=== PATIENT | male | born 1950 | race Caucasian/White ===

== ENCOUNTER 2016-11-30 09:42 | Outpatient (CLI) | payer MEDICARE, OTHER ==
[~2016-11-30] VITALS: Ht 182.9 cm; Wt 106.6 kg
[~2016-11-30 09:42] MED LIST: ALEVE 220MG220 MG PO; AMBIEN 10MG10 MG PO; AMBIEN10 MG PO; AMPICILLIN500 MG PO; ASPIRIN 81M81 MG/TA2 PO; AZASAN50 MG PO; AZATHIOPRINE50 MG PO; BLOOD PRESSURE PO; CHOLESTEROL MED PO; CIPRO 500MG TA500 MG PO; CYANOCOBAL1000 MCG/1 IM; DILAUDID 2MG TAB2 MG PO; DRISDOL50000 IU PO; FLAGYL500 MG PO; FOLIC ACID1 MG PO; HCTZ 25MG TAB25 MG PO; IMURAN 50MG TAB50 MG PO; KLOR-CON20 MEQ PO; LEVAQUIN 250MG250 MG PO; LEVAQUIN 5500 MG/TA1 PO; LIPITOR 40MG TA40 MG PO; LORTAB 5/500 501 TAB PO; METOPROLOL50 MG PO; METRONIDAZOLE500 MG PO; MICROZIDE12.5 MG PO; PENTASA500 MG PO; PERCOCET 325 MG1 TA2 PO; PREDNISONE 5MG5 MG PO; PREDNISONE10 MG PO; PREDNISONE20 MG PO; PRINIVIL20 MG PO; REMICADE; TOPROL XL 25MG25 MG PO; ULTRAM 50MG TAB50 MG; ULTRAM 50MG TAB50 MG PO; VIT B; VITAMIN D1000 IU PO; ZOFRAN ODT4 MG PO; ZOFRAN4 M1 PO; ZOLPIDEM10 MG PO; ZYVOX600 MG PO; [UNRECOGNIZED DRUG - OTHER]; hydrocodone; vit D
[2016-11-30 10:08] LABS: BASO # 0.1 (0.0-0.2); BASO % 0.6 % (0.0-2.0); EOS # 0.3 (0.0-0.7); EOS % 2.7 % (0-4.0); GRAN # 6.6 (1.4-6.5); GRAN % 68.5 % (42.2-75.2); HEMATOCRIT 45.9 % (42.0-52.0); HEMOGLOBIN 15.8 g/dl (13.5-18.0); LYMPH % 20.3 % (20.0-51.0); MEAN CELL VOLUME 92 fl (80.0-100.0); MEAN CORPUSCULAR HEMOGLOBIN 32 pg (27.0-31.0); MEAN CORPUSCULAR HGB CONC 34 g/dl (33.0-37.0); MEAN PLATELET VOLUME 9.3 fl (7.4-10.4); MONO # 0.8 (0.1-0.6); MONO % 7.7 % (1.7-9.3); PLATELET COUNT 301 K/mm3 (130-400); REDCELL DISTRIBUTION WIDTH-CV 14.8 % (11.5-14.5); WHITE BLOOD COUNT 9.7 K/mm3 (4.8-10.8)
[2016-11-30] MEDS ORDERED: REMICADE V100 MG/VIA IV (10:46)
[2016-11-30 11:30] VITALS: BP 119/55; PULSE 70; TEMP 98.5
[2016-11-30 12:00] VITALS: BP 104/44; PULSE 71; TEMP 98
[2016-11-30 12:30] VITALS: BP 105/46; PULSE 72; TEMP 98
[2016-11-30 13:00] VITALS: BP 102/44; PULSE 66; TEMP 97.9
[2016-11-30] MEDS ORDERED: SONATA 10MG10 MG PO (13:18)
[2016-11-30 13:30] VITALS: BP 105/45; PULSE 66; TEMP 98
== END 2016-11-30 13:49 | disposition home or self-care (01) ==
LOC: EUO 09:42
PROVIDERS: Internal Medicine Gastroenterology
DX: K50.818 Crohn's disease of both small and large intestine with other complication (principal)
CPT/HCPCS: J1200; J1745; J7050

== ENCOUNTER 2017-01-25 10:02 | Outpatient (CLI) | payer MEDICARE, OTHER ==
[2017-01-25] VITALS (7 sets, daily range): BP systolic 101–133; BP diastolic 53–66; PULSE 56–77; TEMP 97.6–98
[~2017-01-25] VITALS: Ht 182.9 cm; Wt 106.0 kg
[~2017-01-25 10:02] MED LIST changes: +REMICADE V100 MG/VIA IV; +SONATA 10MG10 MG PO
[2017-01-25 10:23] LABS: HEMATOCRIT 45.2 % (42.0-52.0); HEMOGLOBIN 15.6 g/dl (13.5-18.0); MEAN CELL VOLUME 91 fl (80.0-100.0); MEAN CORPUSCULAR HEMOGLOBIN 31 pg (27.0-31.0); MEAN CORPUSCULAR HGB CONC 35 g/dl (33.0-37.0); MEAN PLATELET VOLUME 9.4 fl (7.4-10.4); PLATELET COUNT 312 K/mm3 (130-400); RED BLOOD COUNT 4.97 M/mm3 (4.20-5.60); REDCELL DISTRIBUTION WIDTH-CV 14.6 % (11.5-14.5); WHITE BLOOD COUNT 9.4 K/mm3 (4.8-10.8)
== END 2017-01-25 15:07 | disposition home or self-care (01) ==
LOC: EUO 10:02
PROVIDERS: Internal Medicine Gastroenterology
DX: K50.818 Crohn's disease of both small and large intestine with other complication (principal)
CPT/HCPCS: J1200; J1745; J7050

== ENCOUNTER 2017-03-22 09:55 | Outpatient (CLI) | payer MEDICARE, OTHER ==
[~2017-03-22] VITALS: Ht 182.9 cm; Wt 108.1 kg
[2017-03-22 10:15] VITALS: BP 127/61; PULSE 71; TEMP 97.8
[2017-03-22 11:26] LABS: HEMATOCRIT 44.7 % (42.0-52.0); HEMOGLOBIN 15.6 g/dl (13.5-18.0); MEAN CELL VOLUME 90 fl (80.0-100.0); MEAN CORPUSCULAR HEMOGLOBIN 31 pg (27.0-31.0); MEAN CORPUSCULAR HGB CONC 35 g/dl (33.0-37.0); MEAN PLATELET VOLUME 9.8 fl (7.4-10.4); PLATELET COUNT 294 K/mm3 (130-400); RED BLOOD COUNT 4.97 M/mm3 (4.20-5.60); REDCELL DISTRIBUTION WIDTH-CV 14.6 % (11.5-14.5); WHITE BLOOD COUNT 9.7 K/mm3 (4.8-10.8)
[2017-03-22 12:55] VITALS: BP 137/70; PULSE 58; TEMP 97.1
[2017-03-22 13:00] VITALS: BP 123/68; PULSE 57
[2017-03-22 13:30] VITALS: BP 137/70; PULSE 62
[2017-03-22 14:00] VITALS: BP 116/70; PULSE 60
== END 2017-03-22 15:08 | disposition home or self-care (01) ==
LOC: EUO 09:55
PROVIDERS: Internal Medicine Gastroenterology
DX: K50.818 Crohn's disease of both small and large intestine with other complication (principal)
CPT/HCPCS: J1200; J1745; J7050

== ENCOUNTER 2017-05-18 08:45 | Outpatient (CLI) | payer MEDICARE, OTHER ==
[~2017-05-18] VITALS: Ht 182.9 cm; Wt 106.6 kg
[2017-05-18] MEDS ORDERED: INFLECTRA100 MG IV (09:32)
[2017-05-18 09:35] LABS: HEMATOCRIT 45.9 % (42.0-52.0); HEMOGLOBIN 15.9 g/dl (13.5-18.0); MEAN CELL VOLUME 91 fl (80.0-100.0); MEAN CORPUSCULAR HEMOGLOBIN 31 pg (27.0-31.0); MEAN CORPUSCULAR HGB CONC 35 g/dl (33.0-37.0); MEAN PLATELET VOLUME 9.5 fl (7.4-10.4); PLATELET COUNT 326 K/mm3 (130-400); RED BLOOD COUNT 5.07 M/mm3 (4.20-5.60); REDCELL DISTRIBUTION WIDTH-CV 15.2 % (11.5-14.5); WHITE BLOOD COUNT 9.1 K/mm3 (4.8-10.8)
[2017-05-18 10:30] VITALS: BP 137/78; PULSE 74; TEMP 98.5
[2017-05-18 11:00] VITALS: BP 116/67; PULSE 59; TEMP 97.9
[2017-05-18 11:30] VITALS: BP 116/61; PULSE 55; TEMP 97.9
[2017-05-18 12:00] VITALS: BP 122/57; PULSE 65; TEMP 98.8
[2017-05-18 12:30] VITALS: BP 102/51; PULSE 47; TEMP 98.2
== END 2017-05-18 13:47 | disposition home or self-care (01) ==
LOC: EUO 08:45
PROVIDERS: Internal Medicine Gastroenterology
DX: K50.818 Crohn's disease of both small and large intestine with other complication (principal); Z79.899 Other long term (current) drug therapy
CPT/HCPCS: J1200; J1745; J7050; Q5102-ZB

== ENCOUNTER 2017-05-24 19:25 | Inpatient (IN) | payer MEDICARE, OTHER ==
[~2017-05-24] VITALS: Ht 170.2 cm; Wt 108.1 kg
[~2017-05-24 19:25] MED LIST changes: +INFLECTRA100 MG IV
[2017-05-24 20:10] LABS: BASO # 0.1 (0.0-0.2); BASO % 0.4 % (0.0-2.0); EOS # 0.2 (0.0-0.7); EOS % 1.1 % (0-4.0); GRAN # 16.8 (1.4-6.5); GRAN % 86.2 % (42.2-75.2); HEMATOCRIT 46.9 % (42.0-52.0); HEMOGLOBIN 16.1 g/dl (13.5-18.0); LYMPH # 1.1 (1.2-3.4); LYMPH % 5.6 % (20.0-51.0); MEAN CELL VOLUME 92 fl (80.0-100.0); MEAN CORPUSCULAR HEMOGLOBIN 32 pg (27.0-31.0); MEAN CORPUSCULAR HGB CONC 34 g/dl (33.0-37.0); MEAN PLATELET VOLUME 9.4 fl (7.4-10.4); MONO # 1.2 (0.1-0.6); MONO % 6.2 % (1.7-9.3); PLATELET COUNT 321 K/mm3 (130-400); REDCELL DISTRIBUTION WIDTH-CV 15.2 % (11.5-14.5); WHITE BLOOD COUNT 19.5 K/mm3 (4.8-10.8)
[2017-05-24 20:17] LABS: ALBUMIN 4.2 gm/dL (3.5-5.0); BILIRUBIN,TOTAL 0.9 mg/dL (0.0-1.0); CALCIUM 9.2 mg/dL (8.4-10.2); CREATININE, serum 1.13 mg/dL (0.66-1.25); POTASSIUM 3.8 mmol/L (3.4-5.0); TOTAL PROTEIN 6.9 gm/dL (6.4-8.2)
[2017-05-24 22:29] VITALS: BP 117/61; PULSE 66; TEMP 97.9
[2017-05-24 23:33] LABS: PH 6 (5-8); SQUAMOUS EPITHELIAL None Seen /hpf; URINE APPEARANCE Clear; URINE BACTERIA None Seen /hpf; URINE BILIRUBIN Negative (NEGATIVE); URINE BLOOD 1+ (NEGATIVE); URINE COLOR Yellow; URINE GLUCOSE Negative (NEGATIVE); URINE KETONE Negative (NEGATIVE); URINE UROBILINOGEN Negative (NEGATIVE); URINE WBC 0-2 /hpf
[2017-05-25 02:26] VITALS: BP 110/55; PULSE 66; TEMP 97.3
[2017-05-25 05:34] VITALS: BP 109/54; PULSE 64; TEMP 97.3
[2017-05-25 10:00] VITALS: BP 134/55; PULSE 66; TEMP 98.3
== END 2017-05-25 14:25 | disposition home or self-care (01) | DRG 386 ==
LOC: COL.ER 19:25 → SURG 21:20
PROVIDERS: Emergency Medicine
DX: K50.912 Crohn's disease, unspecified, with intestinal obstruction (principal); J44.9 Chronic obstructive pulmonary disease, unspecified; I10 Essential (primary) hypertension; Z85.72 Personal history of non-Hodgkin lymphomas
CPT/HCPCS: J1170; J1956; J2405; J7030; J7120; Q9967

== ENCOUNTER 2017-07-11 19:54 | Emergency (ER) | payer MEDICARE, OTHER ==
[~2017-07-11] VITALS: Ht 170.2 cm; Wt 105.9 kg
[2017-07-11 19:57] VITALS: TEMP 98.9
[2017-07-11 20:31] LABS: BASO # 0.1 (0.0-0.2); BASO % 0.7 % (0.0-2.0); EOS # 0.1 (0.0-0.7); EOS % 1.6 % (0-4.0); GRAN # 5.5 (1.4-6.5); GRAN % 62.9 % (42.2-75.2); HEMATOCRIT 46.9 % (42.0-52.0); LYMPH # 2.4 (1.2-3.4); LYMPH % 27.4 % (20.0-51.0); MEAN CELL VOLUME 92 fl (80.0-100.0); MEAN CORPUSCULAR HEMOGLOBIN 32 pg (27.0-31.0); MEAN CORPUSCULAR HGB CONC 34 g/dl (33.0-37.0); MEAN PLATELET VOLUME 9.2 fl (7.4-10.4); MONO # 0.6 (0.1-0.6); MONO % 7.1 % (1.7-9.3); PLATELET COUNT 307 K/mm3 (130-400); RED BLOOD COUNT 5.08 M/mm3 (4.20-5.60); REDCELL DISTRIBUTION WIDTH-CV 14.8 % (11.5-14.5); WHITE BLOOD COUNT 8.7 K/mm3 (4.8-10.8)
[2017-07-11 20:43] LABS: ADJUSTED CALCIUM 8.8 mg/dL (8.4-10.2); ALBUMIN 4.1 gm/dL (3.5-5.0); BILIRUBIN,TOTAL 0.7 mg/dL (0.0-1.0); C-REACTIVE PROTEIN 0.6 mg/dL (0.0-0.9); CALCIUM 8.9 mg/dL (8.4-10.2); CREATININE, serum 1.23 mg/dL (0.66-1.25); POTASSIUM 3.7 mmol/L (3.4-5.0); TOTAL PROTEIN 6.9 gm/dL (6.4-8.2)
[2017-07-11 20:53] LABS: PH 7 (5-8); SQUAMOUS EPITHELIAL 0-2 /hpf; URINE APPEARANCE Clear; URINE BACTERIA None Seen /hpf; URINE BILIRUBIN Negative (NEGATIVE); URINE BLOOD Negative (NEGATIVE); URINE COLOR Yellow; URINE GLUCOSE Negative (NEGATIVE); URINE KETONE Negative (NEGATIVE); URINE UROBILINOGEN Negative (NEGATIVE); URINE WBC 0-2 /hpf
[2017-07-11 22:13] VITALS: BP 136/66; PULSE 68
== END 2017-07-11 22:14 | disposition home or self-care (01) ==
LOC: COL.ER 19:54
PROVIDERS: Family Medicine
DX: K50.90 Crohn's disease, unspecified, without complications (principal); F17.210 Nicotine dependence, cigarettes, uncomplicated; Z79.82 Long term (current) use of aspirin
CPT/HCPCS: J2405; J7030; Q9967

== ENCOUNTER 2017-07-13 10:40 | Outpatient (CLI) | payer MEDICARE, OTHER ==
[~2017-07-13] VITALS: Ht 170.2 cm; Wt 105.4 kg
[2017-07-13 11:46] LABS: HEMATOCRIT 43.6 % (42.0-52.0); HEMOGLOBIN 15.1 g/dl (13.5-18.0); MEAN CELL VOLUME 92 fl (80.0-100.0); MEAN CORPUSCULAR HEMOGLOBIN 32 pg (27.0-31.0); MEAN CORPUSCULAR HGB CONC 35 g/dl (33.0-37.0); MEAN PLATELET VOLUME 9.4 fl (7.4-10.4); PLATELET COUNT 263 K/mm3 (130-400); RED BLOOD COUNT 4.75 M/mm3 (4.20-5.60); REDCELL DISTRIBUTION WIDTH-CV 14.8 % (11.5-14.5); WHITE BLOOD COUNT 7.4 K/mm3 (4.8-10.8)
[2017-07-13 13:19] VITALS: BP 119/57; PULSE 56; TEMP 97.3
[2017-07-13 13:50] VITALS: BP 108/53; PULSE 52; TEMP 98
[2017-07-13 14:15] VITALS: BP 121/46; PULSE 55; TEMP 98.1
[2017-07-13 15:00] VITALS: BP 97/57; PULSE 53; TEMP 98
[2017-07-13 15:25] VITALS: BP 103/59; PULSE 59; TEMP 98.1
== END 2017-07-13 16:38 | disposition home or self-care (01) ==
LOC: EUO 10:40
PROVIDERS: Internal Medicine Gastroenterology
DX: K50.90 Crohn's disease, unspecified, without complications (principal); Z79.899 Other long term (current) drug therapy
CPT/HCPCS: J1200; J7050; Q5102-ZB

== ENCOUNTER 2017-09-07 13:10 | Outpatient (CLI) | payer MEDICARE, OTHER ==
[~2017-09-07] VITALS: Ht 170.2 cm; Wt 104.3 kg
[2017-09-07 13:32] LABS: HEMATOCRIT 46.6 % (42.0-52.0); HEMOGLOBIN 16.2 g/dl (13.5-18.0); MEAN CELL VOLUME 92 fl (80.0-100.0); MEAN CORPUSCULAR HEMOGLOBIN 32 pg (27.0-31.0); MEAN CORPUSCULAR HGB CONC 35 g/dl (33.0-37.0); MEAN PLATELET VOLUME 9.4 fl (7.4-10.4); PLATELET COUNT 286 K/mm3 (130-400); RED BLOOD COUNT 5.06 M/mm3 (4.20-5.60); WHITE BLOOD COUNT 7.6 K/mm3 (4.8-10.8)
[2017-09-07 14:30] VITALS: BP 128/58; PULSE 65; TEMP 98.4
[2017-09-07 15:08] VITALS: BP 124/56; PULSE 60; TEMP 97.9
[2017-09-07 15:40] VITALS: BP 128/52; PULSE 53; TEMP 97.8
[2017-09-07 16:11] VITALS: BP 118/59; PULSE 58
[2017-09-07 16:41] VITALS: BP 114/50; PULSE 52; TEMP 97.7
== END 2017-09-07 16:42 | disposition home or self-care (01) ==
LOC: EUO 13:10
PROVIDERS: Internal Medicine Gastroenterology
DX: K50.818 Crohn's disease of both small and large intestine with other complication (principal); Z79.899 Other long term (current) drug therapy
CPT/HCPCS: J1200; J7050; Q5102-ZB

== ENCOUNTER 2017-11-05 17:48 | Inpatient (IN) | payer MEDICARE, OTHER ==
[~2017-11-05] VITALS: Ht 170.2 cm; Wt 105.2 kg
[2017-11-05 18:25] LABS: BASO # 0.1 (0.0-0.2); BASO % 0.4 % (0.0-2.0); EOS # 0.2 (0.0-0.7); EOS % 1.2 % (0-4.0); GRAN # 10.9 (1.4-6.5); GRAN % 75.7 % (42.2-75.2); HEMATOCRIT 49.1 % (42.0-52.0); HEMOGLOBIN 16.9 g/dl (13.5-18.0); LYMPH # 2.1 (1.2-3.4); LYMPH % 14.8 % (20.0-51.0); MEAN CELL VOLUME 92 fl (80.0-100.0); MEAN CORPUSCULAR HEMOGLOBIN 32 pg (27.0-31.0); MEAN CORPUSCULAR HGB CONC 34 g/dl (33.0-37.0); MEAN PLATELET VOLUME 9.5 fl (7.4-10.4); MONO # 1.1 (0.1-0.6); MONO % 7.4 % (1.7-9.3); PLATELET COUNT 290 K/mm3 (130-400); RED BLOOD COUNT 5.35 M/mm3 (4.20-5.60); WHITE BLOOD COUNT 14.4 K/mm3 (4.8-10.8)
[2017-11-05 18:26] LABS: COLLECTION METHOD CLEAN CATCH
[2017-11-05 18:34] LABS: MUCOUS Present /lpf; PH 6 (5-8); SQUAMOUS EPITHELIAL None Seen /hpf; URINE APPEARANCE Clear; URINE BACTERIA None Seen /hpf; URINE BILIRUBIN Negative (NEGATIVE); URINE BLOOD 1+ (NEGATIVE); URINE COLOR Amber; URINE GLUCOSE Negative (NEGATIVE); URINE KETONE Negative (NEGATIVE); URINE LEUKOCYTE ESTERASE Negative (NEGATIVE); URINE PROTEIN(semi-quant) 1+ (NEGATIVE)
[2017-11-05 19:04] LABS: ADJUSTED CALCIUM 9.1 mg/dL (8.4-10.2); ALANINE AMINOTRANSFERASE 29 U/L (21-72); ALKALINE PHOSPHATASE 94 U/L (50-136); ANION GAP 11 mmol/L (7-16); BILIRUBIN,TOTAL 0.8 mg/dL (0.0-1.0); BLOOD UREA NITROGEN 11 mg/dL (9-20); C-REACTIVE PROTEIN < 0.5 mg/dL (0.0-0.9); CALCIUM 9.1 mg/dL (8.4-10.2); CARBON DIOXIDE 28 mmol/L (22-30); CHLORIDE 97 mmol/L (98-107); GLUCOSE 189 mg/dL (74-106); LIPASE 60 U/L (23-300); POTASSIUM 3.2 mmol/L (3.4-5.0); SODIUM 136 mmol/L (137-145); TOTAL PROTEIN 6.7 gm/dL (6.4-8.2)
[2017-11-05 22:00] VITALS: BP 156/81; PULSE 69; TEMP 98.7
[2017-11-06 04:00] VITALS: BP 136/68; PULSE 62; TEMP 97.4
[2017-11-06 09:34] VITALS: BP 134/64; PULSE 62; TEMP 97.9
== END 2017-11-06 15:00 | disposition home or self-care (01) | DRG 386 ==
LOC: COL.ER 17:48 → SURG 20:14
PROVIDERS: Emergency Medicine
DX: K50.912 Crohn's disease, unspecified, with intestinal obstruction (principal); J44.9 Chronic obstructive pulmonary disease, unspecified; Z85.72 Personal history of non-Hodgkin lymphomas; Z87.891 Personal history of nicotine dependence
CPT/HCPCS: G0378; J1170; J2405; J3480; J7030; Q9967

== ENCOUNTER 2017-11-09 14:12 | Outpatient (CLI) | payer MEDICARE, OTHER ==
[2017-11-09 15:00] LABS: HEMATOCRIT 44.9 % (42.0-52.0); HEMOGLOBIN 15.5 g/dl (13.5-18.0); MEAN CELL VOLUME 93 fl (80.0-100.0); MEAN CORPUSCULAR HEMOGLOBIN 32 pg (27.0-31.0); MEAN CORPUSCULAR HGB CONC 35 g/dl (33.0-37.0); MEAN PLATELET VOLUME 9.6 fl (7.4-10.4); PLATELET COUNT 295 K/mm3 (130-400); RED BLOOD COUNT 4.85 M/mm3 (4.20-5.60); WHITE BLOOD COUNT 7.6 K/mm3 (4.8-10.8)
== END 2017-11-09 16:19 | disposition home or self-care (01) ==
LOC: EUO 14:12
PROVIDERS: Internal Medicine Gastroenterology
DX: K50.818 Crohn's disease of both small and large intestine with other complication (principal); Z79.899 Other long term (current) drug therapy
CPT/HCPCS: J1200; J7050; Q5102-ZB

== ENCOUNTER 2018-01-04 11:03 | Outpatient (CLI) | payer MEDICARE, OTHER ==
[~2018-01-04] VITALS: Ht 170.2 cm; Wt 106.8 kg
[2018-01-04 11:33] LABS: HEMATOCRIT 45.8 % (42.0-52.0); HEMOGLOBIN 16.1 g/dl (13.5-18.0); MEAN CELL VOLUME 91 fl (80.0-100.0); MEAN CORPUSCULAR HEMOGLOBIN 32 pg (27.0-31.0); MEAN CORPUSCULAR HGB CONC 35 g/dl (33.0-37.0); MEAN PLATELET VOLUME 9.1 fl (7.4-10.4); PLATELET COUNT 291 K/mm3 (130-400); RED BLOOD COUNT 5.05 M/mm3 (4.20-5.60); REDCELL DISTRIBUTION WIDTH-CV 14.8 % (11.5-14.5)
[2018-01-04 12:58] VITALS: BP 124/109; PULSE 64; TEMP 97.6
[2018-01-04 13:25] VITALS: BP 126/69; PULSE 89
[2018-01-04 13:45] VITALS: BP 126/55; PULSE 65
[2018-01-04 14:22] VITALS: BP 132/55; PULSE 63; TEMP 98.1
[2018-01-04 15:12] VITALS: BP 132/55; PULSE 64; TEMP 98.1
== END 2018-01-04 15:14 | disposition home or self-care (01) ==
LOC: EUO 11:03
PROVIDERS: Internal Medicine Gastroenterology
DX: K50.818 Crohn's disease of both small and large intestine with other complication (principal)
CPT/HCPCS: J1200; J7050; Q5102-ZB

== ENCOUNTER 2018-02-01 23:01 | Inpatient (IN) | payer MEDICARE, OTHER ==
[~2018-02-01] VITALS: Ht 170.2 cm; Wt 106.5 kg
[2018-02-01 23:43] LABS: COLLECTION METHOD CLEAN CATCH
[2018-02-01 23:46] LABS: BASO # 0.1 (0.0-0.2); BASO % 0.8 % (0.0-2.0); EOS # 0.2 (0.0-0.7); EOS % 1.9 % (0-4.0); GRAN % 58.5 % (42.2-75.2); HEMATOCRIT 46.2 % (42.0-52.0); LYMPH # 3.1 (1.2-3.4); LYMPH % 29.9 % (20.0-51.0); MEAN CELL VOLUME 92 fl (80.0-100.0); MEAN CORPUSCULAR HEMOGLOBIN 32 pg (27.0-31.0); MEAN CORPUSCULAR HGB CONC 35 g/dl (33.0-37.0); MEAN PLATELET VOLUME 9.4 fl (7.4-10.4); MONO # 0.9 (0.1-0.6); MONO % 8.6 % (1.7-9.3); PLATELET COUNT 260 K/mm3 (130-400); RED BLOOD COUNT 5.02 M/mm3 (4.20-5.60); REDCELL DISTRIBUTION WIDTH-CV 15.1 % (11.5-14.5)
[2018-02-01 23:52] LABS: MUCOUS Present /lpf; PH 6 (5-8); SQUAMOUS EPITHELIAL None Seen /hpf; URINE APPEARANCE Clear; URINE BACTERIA None Seen /hpf; URINE BILIRUBIN Negative (NEGATIVE); URINE BLOOD Negative (NEGATIVE); URINE COLOR Amber; URINE GLUCOSE Negative (NEGATIVE); URINE KETONE Negative (NEGATIVE); URINE LEUKOCYTE ESTERASE Negative (NEGATIVE); URINE NITRATE Negative (NEGATIVE); URINE PROTEIN(semi-quant) 1+ (NEGATIVE)
[2018-02-01 23:58] LABS: ALANINE AMINOTRANSFERASE 37 U/L (21-72); ALKALINE PHOSPHATASE 85 U/L (50-136); ANION GAP 9 mmol/L (7-16); AST,SGOT 37 U/L (15-37); BILIRUBIN,TOTAL 0.6 mg/dL (0.0-1.0); BLOOD UREA NITROGEN 13 mg/dL (9-20); C-REACTIVE PROTEIN < 0.5 mg/dL (0.0-0.9); CARBON DIOXIDE 30 mmol/L (22-30); CHLORIDE 100 mmol/L (98-107); CREATININE, serum 1.03 mg/dL (0.66-1.25); GLUCOSE 131 mg/dL (74-106); LIPASE 56 U/L (23-300); POTASSIUM 3.4 mmol/L (3.4-5.0); SODIUM 138 mmol/L (137-145); TOTAL PROTEIN 6.6 gm/dL (6.4-8.2)
[2018-02-02 02:13] VITALS: BP 124/48; PULSE 56; TEMP 97.6
[2018-02-02 06:08] VITALS: BP 120/52; PULSE 59; TEMP 97.8
[2018-02-02 07:10] VITALS: BP 126/59; PULSE 62; TEMP 97.7
== END 2018-02-02 09:50 | disposition home or self-care (01) | DRG 386 ==
LOC: COL.ER 23:01 → SURG 02-02 01:00
PROVIDERS: Family Medicine
DX: K50.912 Crohn's disease, unspecified, with intestinal obstruction (principal); J44.9 Chronic obstructive pulmonary disease, unspecified; Z87.891 Personal history of nicotine dependence; Z85.72 Personal history of non-Hodgkin lymphomas
CPT/HCPCS: J2270; J2405; J3010; J7030; J7120; Q9967

== ENCOUNTER 2018-03-01 20:23 | Emergency (ER) | payer MEDICARE, OTHER ==
[~2018-03-01] VITALS: Wt 104.5 kg
[~2018-03-01 20:23] MED LIST changes: -K-DUR20 MEQ PO
[2018-03-01 20:37] VITALS: TEMP 99.1
[2018-03-01 20:57] LABS: COLLECTION METHOD CLEAN CATCH
[2018-03-01 20:58] LABS: BASO # 0.1 (0.0-0.2); BASO % 0.6 % (0.0-2.0); EOS # 0.2 (0.0-0.7); EOS % 1.6 % (0-4.0); GRAN # 6.1 (1.4-6.5); GRAN % 60.3 % (42.2-75.2); HEMATOCRIT 44.9 % (42.0-52.0); HEMOGLOBIN 15.7 g/dl (13.5-18.0); LYMPH # 2.9 (1.2-3.4); LYMPH % 28.3 % (20.0-51.0); MEAN CELL VOLUME 91 fl (80.0-100.0); MEAN CORPUSCULAR HEMOGLOBIN 32 pg (27.0-31.0); MEAN CORPUSCULAR HGB CONC 35 g/dl (33.0-37.0); MEAN PLATELET VOLUME 9.4 fl (7.4-10.4); MONO # 0.9 (0.1-0.6); MONO % 8.9 % (1.7-9.3); PLATELET COUNT 259 K/mm3 (130-400); RED BLOOD COUNT 4.92 M/mm3 (4.20-5.60)
[2018-03-01 21:07] LABS: ALBUMIN 3.7 gm/dL (3.5-5.0); BILIRUBIN,TOTAL 0.8 mg/dL (0.0-1.0); CALCIUM 8.3 mg/dL (8.4-10.2); CREATININE, serum 1.12 mg/dL (0.66-1.25); TOTAL PROTEIN 6.8 gm/dL (6.4-8.2)
[2018-03-01 21:10] LABS: PH 6 (5-8); SQUAMOUS EPITHELIAL None Seen /hpf; URINE APPEARANCE Clear; URINE BACTERIA None Seen /hpf; URINE BILIRUBIN Negative (NEGATIVE); URINE BLOOD Negative (NEGATIVE); URINE COLOR Yellow; URINE GLUCOSE Negative (NEGATIVE); URINE KETONE Negative (NEGATIVE); URINE LEUKOCYTE ESTERASE Negative (NEGATIVE); URINE NITRATE Negative (NEGATIVE); URINE PROTEIN(semi-quant) Negative (NEGATIVE); URINE UROBILINOGEN >=4.0 mg/dL (NEGATIVE)
[2018-03-01] MEDS ORDERED: K-DUR20 MEQ PO (22:11)
[2018-03-01 22:56] VITALS: BP 159/83; PULSE 60
[2018-03-04] MEDS ORDERED: PROTONIX 40MG T40 MG PO (12:09)
== END 2018-03-01 22:54 | disposition home or self-care (01) ==
LOC: COL.ER 20:23
PROVIDERS: Emergency Medicine
DX: K56.609 Unspecified intestinal obstruction, unspecified as to partial versus complete obstruction (principal); K50.90 Crohn's disease, unspecified, without complications; E87.6 Hypokalemia; I10 Essential (primary) hypertension; F17.210 Nicotine dependence, cigarettes, uncomplicated; Z98.890 Other specified postprocedural states; Z85.72 Personal history of non-Hodgkin lymphomas
CPT/HCPCS: J2405; J7030; Q9967

== ENCOUNTER → 2018-03-01 | Outpatient (CLI) | payer MEDICARE, OTHER ==
[~2018-03-01] VITALS: Ht 170.2 cm; Wt 104.3 kg
[~2018-03-01] MED LIST changes: +K-DUR20 MEQ PO
[2018-03-01 13:42] LABS: HEMOGLOBIN 15.4 g/dl (13.5-18.0); MEAN CELL VOLUME 91 fl (80.0-100.0); MEAN CORPUSCULAR HEMOGLOBIN 32 pg (27.0-31.0); MEAN CORPUSCULAR HGB CONC 35 g/dl (33.0-37.0); MEAN PLATELET VOLUME 9.5 fl (7.4-10.4); PLATELET COUNT 273 K/mm3 (130-400); RED BLOOD COUNT 4.85 M/mm3 (4.20-5.60); REDCELL DISTRIBUTION WIDTH-CV 14.9 % (11.5-14.5)
[2018-03-01 14:50] VITALS: BP 143/68; PULSE 64; TEMP 98
[2018-03-01 15:20] VITALS: BP 122/66; PULSE 65; TEMP 99.1
[2018-03-01 15:50] VITALS: BP 131/81; PULSE 60; TEMP 99
[2018-03-01 16:20] VITALS: BP 136/70; PULSE 57; TEMP 98.2
== END ==
LOC: EUO 12:56
PROVIDERS: Internal Medicine Gastroenterology
DX: K50.818 Crohn's disease of both small and large intestine with other complication (principal)
CPT/HCPCS: J1200; J7050; Q5103

== ENCOUNTER 2018-04-26 12:46 | Outpatient (CLI) | payer MEDICARE, OTHER ==
[~2018-04-26] VITALS: Ht 170.2 cm; Wt 109.0 kg
[~2018-04-26 12:46] MED LIST changes: +K-DUR20 MEQ PO; +PROTONIX 40MG T40 MG PO
[2018-04-26] MEDS ORDERED: CALCIUM CITRATE1 TA1 PO (13:21)
[2018-04-26 13:24] VITALS: BP 133/69; PULSE 61; TEMP 98.7
[2018-04-26 13:25] LABS: HEMATOCRIT 44.5 % (42.0-52.0); HEMOGLOBIN 15.7 g/dl (13.5-18.0); MEAN CELL VOLUME 90 fl (80.0-100.0); MEAN CORPUSCULAR HEMOGLOBIN 32 pg (27.0-31.0); MEAN CORPUSCULAR HGB CONC 35 g/dl (33.0-37.0); MEAN PLATELET VOLUME 10.5 fl (7.4-10.4); PLATELET COUNT 275 K/mm3 (130-400); RED BLOOD COUNT 4.94 M/mm3 (4.20-5.60); REDCELL DISTRIBUTION WIDTH-CV 15.4 % (11.5-14.5)
== END 2018-04-26 16:00 | disposition home or self-care (01) ==
LOC: EUO 12:46
PROVIDERS: Internal Medicine Gastroenterology
DX: K50.818 Crohn's disease of both small and large intestine with other complication (principal); Z79.899 Other long term (current) drug therapy
CPT/HCPCS: J1200; J7050; Q5103

== ENCOUNTER 2018-06-21 12:55 | Outpatient (CLI) | payer MEDICARE, OTHER ==
[~2018-06-21] VITALS: Ht 170.2 cm; Wt 101.8 kg
[~2018-06-21 12:55] MED LIST changes: +CALCIUM CITRATE1 TA1 PO
[2018-06-21 13:18] LABS: HEMATOCRIT 46.1 % (42.0-52.0); HEMOGLOBIN 16.3 g/dl (13.5-18.0); MEAN CELL VOLUME 90 fl (80.0-100.0); MEAN CORPUSCULAR HEMOGLOBIN 32 pg (27.0-31.0); MEAN CORPUSCULAR HGB CONC 35 g/dl (33.0-37.0); MEAN PLATELET VOLUME 9.2 fl (7.4-10.4); PLATELET COUNT 284 K/mm3 (130-400); RED BLOOD COUNT 5.13 M/mm3 (4.20-5.60); REDCELL DISTRIBUTION WIDTH-CV 14.8 % (11.5-14.5)
[2018-06-21] MEDS ORDERED: CALCITRATE 3151 TAB PO (14:18)
[2018-06-21 14:30] VITALS: BP 138/67; PULSE 55; TEMP 98.3
[2018-06-21 15:00] VITALS: BP 140/59; PULSE 51; TEMP 97.7
[2018-06-21 15:30] VITALS: BP 129/62; PULSE 57; TEMP 97.6
[2018-06-21 16:00] VITALS: BP 130/61; PULSE 66; TEMP 97.5
[2018-06-21 16:30] VITALS: BP 134/62; PULSE 56; TEMP 98.1
== END 2018-06-21 17:16 | disposition home or self-care (01) ==
LOC: EUO 12:55
PROVIDERS: Internal Medicine Gastroenterology
DX: K50.818 Crohn's disease of both small and large intestine with other complication (principal); Z79.899 Other long term (current) drug therapy
CPT/HCPCS: J1200; J7050; Q5103

== ENCOUNTER 2018-07-02 18:16 | Emergency (ER) | payer MEDICARE, OTHER ==
[~2018-07-02] VITALS: Ht 170.2 cm; Wt 101.5 kg
[~2018-07-02 18:16] MED LIST changes: +CALCITRATE 3151 TAB PO
[2018-07-02 18:19] VITALS: BP 143/73; TEMP 98.7
[2018-07-02 19:11] LABS: BASO # 0.1 (0.0-0.2); BASO % 0.5 % (0.0-2.0); EOS # 0.2 (0.0-0.7); EOS % 1.9 % (0-4.0); GRAN # 5.9 (1.4-6.5); GRAN % 61.2 % (42.2-75.2); HEMATOCRIT 46.2 % (42.0-52.0); LYMPH # 2.6 (1.2-3.4); LYMPH % 26.5 % (20.0-51.0); MEAN CELL VOLUME 91 fl (80.0-100.0); MEAN CORPUSCULAR HEMOGLOBIN 32 pg (27.0-31.0); MEAN CORPUSCULAR HGB CONC 35 g/dl (33.0-37.0); MEAN PLATELET VOLUME 9.5 fl (7.4-10.4); MONO # 0.9 (0.1-0.6); MONO % 9.6 % (1.7-9.3); PLATELET COUNT 296 K/mm3 (130-400); RED BLOOD COUNT 5.08 M/mm3 (4.20-5.60); REDCELL DISTRIBUTION WIDTH-CV 14.9 % (11.5-14.5)
[2018-07-02 19:24] LABS: BILIRUBIN,TOTAL 0.7 mg/dL (0.0-1.0); C-REACTIVE PROTEIN 0.7 mg/dL (0.0-0.9); CALCIUM 8.7 mg/dL (8.4-10.2); CREATININE, serum 0.99 mg/dL (0.66-1.25); TOTAL PROTEIN 6.8 gm/dL (6.4-8.2)
[2018-07-02] MEDS ORDERED: FLAGYL500 MG PO ×2 (22:11→22:12)
[2018-07-02] MEDS ORDERED: CIPRO 500MG TA500 MG PO (22:12)
[2018-07-02 22:30] VITALS: PULSE 58
== END 2018-07-02 22:30 | disposition home or self-care (01) ==
LOC: COL.ER 18:16
PROVIDERS: Emergency Medicine
DX: K52.9 Noninfective gastroenteritis and colitis, unspecified (principal); E87.6 Hypokalemia; K50.90 Crohn's disease, unspecified, without complications; Z79.82 Long term (current) use of aspirin; Z79.891 Long term (current) use of opiate analgesic; Z86.79 Personal history of other diseases of the circulatory system
CPT/HCPCS: J1170; J7030; Q9967

== ENCOUNTER 2018-08-16 10:51 | Outpatient (CLI) | payer MEDICARE, OTHER ==
[~2018-08-16] VITALS: Ht 170.2 cm; Wt 101.0 kg
[2018-08-16 11:27] LABS: HEMATOCRIT 46.5 % (42.0-52.0); HEMOGLOBIN 16.5 g/dl (13.5-18.0); MEAN CELL VOLUME 90 fl (80.0-100.0); MEAN CORPUSCULAR HEMOGLOBIN 32 pg (27.0-31.0); MEAN CORPUSCULAR HGB CONC 36 g/dl (33.0-37.0); MEAN PLATELET VOLUME 9.3 fl (7.4-10.4); PLATELET COUNT 288 K/mm3 (130-400); RED BLOOD COUNT 5.15 M/mm3 (4.20-5.60); REDCELL DISTRIBUTION WIDTH-CV 14.9 % (11.5-14.5)
[2018-08-16 12:33] VITALS: BP 126/60; PULSE 57; TEMP 97.3
[2018-08-16 13:05] VITALS: BP 115/64; PULSE 54; TEMP 98.1
[2018-08-16 13:35] VITALS: BP 110/67; PULSE 56; TEMP 98.9
[2018-08-16 14:05] VITALS: BP 113/47; PULSE 57; TEMP 98.6
[2018-08-16 14:35] VITALS: BP 118/54; PULSE 57; TEMP 97
== END 2018-08-16 15:04 | disposition home or self-care (01) ==
LOC: EUO 10:51
PROVIDERS: Internal Medicine Gastroenterology
DX: K50.90 Crohn's disease, unspecified, without complications (principal)
CPT/HCPCS: J1200; J7050; Q5103

== ENCOUNTER 2018-09-14 16:05 | Emergency (ER) | payer MEDICARE, OTHER ==
[~2018-09-14] VITALS: Ht 170.2 cm; Wt 100.0 kg
[2018-09-14 16:22] VITALS: TEMP 98.5
[2018-09-14 16:54] LABS: COLLECTION METHOD CLEAN CATCH
[2018-09-14 16:59] LABS: BASO # 0.1 (0.0-0.2); BASO % 0.7 % (0.0-2.0); EOS # 0.2 (0.0-0.7); EOS % 2.2 % (0-4.0); GRAN # 6.8 (1.4-6.5); GRAN % 67.9 % (42.2-75.2); HEMATOCRIT 46.3 % (42.0-52.0); HEMOGLOBIN 16.1 g/dl (13.5-18.0); LYMPH # 1.9 (1.2-3.4); LYMPH % 18.9 % (20.0-51.0); MEAN CELL VOLUME 93 fl (80.0-100.0); MEAN CORPUSCULAR HEMOGLOBIN 32 pg (27.0-31.0); MEAN CORPUSCULAR HGB CONC 35 g/dl (33.0-37.0); MEAN PLATELET VOLUME 9.8 fl (7.4-10.4); MONO % 9.9 % (1.7-9.3); PLATELET COUNT 258 K/mm3 (130-400); RED BLOOD COUNT 4.99 M/mm3 (4.20-5.60); REDCELL DISTRIBUTION WIDTH-CV 15.1 % (11.5-14.5)
[2018-09-14 17:00] LABS: PH 5 (5-8); SQUAMOUS EPITHELIAL 0-2 /hpf; URINE APPEARANCE Clear; URINE BACTERIA None Seen /hpf; URINE BILIRUBIN Negative (NEGATIVE); URINE BLOOD 1+ (NEGATIVE); URINE COLOR Yellow; URINE GLUCOSE Negative (NEGATIVE); URINE KETONE Negative (NEGATIVE); URINE LEUKOCYTE ESTERASE Negative (NEGATIVE); URINE NITRATE Negative (NEGATIVE); URINE PROTEIN(semi-quant) Negative (NEGATIVE); URINE RBC 0-2 /hpf; URINE UROBILINOGEN Negative (NEGATIVE)
[2018-09-14 17:11] LABS: BILIRUBIN,TOTAL 0.5 mg/dL (0.0-1.0); C-REACTIVE PROTEIN 0.6 mg/dL (0.0-0.9); CALCIUM 8.8 mg/dL (8.4-10.2); CREATININE, serum 1.02 mg/dL (0.66-1.25); POTASSIUM 3.2 mmol/L (3.4-5.0)
[2018-09-14] MEDS ORDERED: GAS-X ULTRA ST180 MG PO (17:35)
[2018-09-14] MEDS ORDERED: [UNRECOGNIZED DRUG - OTHER] PO (17:37)
[2018-09-14] MEDS ORDERED: CIPRO 500MG TA500 MG PO (19:54)
[2018-09-14] MEDS ORDERED: FLAGYL500 MG PO (19:54)
[2018-09-14] MEDS ORDERED: PREDNISONE20 MG PO (19:54)
[2018-09-14 21:06] VITALS: BP 135/71; PULSE 82
== END 2018-09-14 21:26 | disposition home or self-care (01) ==
LOC: COL.ER 16:05
PROVIDERS: Family Medicine
DX: K50.10 Crohn's disease of large intestine without complications (principal); K52.9 Noninfective gastroenteritis and colitis, unspecified; I10 Essential (primary) hypertension; Z79.82 Long term (current) use of aspirin; Z87.891 Personal history of nicotine dependence
CPT/HCPCS: J0295; J1100; J2270; J2405; J7030; J7512; Q9967

== ENCOUNTER 2018-12-04 12:40 | Outpatient (CLI) | payer MEDICARE, OTHER ==
[~2018-12-04] VITALS: Ht 170.2 cm; Wt 101.3 kg
[~2018-12-04 12:40] MED LIST changes: +GAS-X ULTRA ST180 MG PO; +[UNRECOGNIZED DRUG - OTHER] PO
[2018-12-04 13:14] LABS: HEMATOCRIT 46.6 % (42.0-52.0); HEMOGLOBIN 16.1 g/dl (13.5-18.0); MEAN CELL VOLUME 91 fl (80.0-100.0); MEAN CORPUSCULAR HEMOGLOBIN 31 pg (27.0-31.0); MEAN CORPUSCULAR HGB CONC 35 g/dl (33.0-37.0); MEAN PLATELET VOLUME 9.9 fl (7.4-10.4); PLATELET COUNT 241 K/mm3 (130-400); RED BLOOD COUNT 5.12 M/mm3 (4.20-5.60); REDCELL DISTRIBUTION WIDTH-CV 14.8 % (11.5-14.5)
--- NOTE | 2018-12-04 13:22 | NUR ---
Discharge instructions given to pt.Pt verbalizes understanding.
[2018-12-04 14:15] VITALS: BP 132/59; PULSE 54; TEMP 97.5
[2018-12-04 14:45] VITALS: BP 142/66; PULSE 51
[2018-12-04 15:00] VITALS: BP 136/67; PULSE 51
[2018-12-04 15:30] VITALS: BP 134/57; PULSE 50
[2018-12-04 16:00] VITALS: BP 142/66; PULSE 53
[2018-12-04 16:37] VITALS: BP 154/67; PULSE 54; TEMP 98.3
== END 2018-12-04 17:37 | disposition home or self-care (01) ==
LOC: EUO 12:40
PROVIDERS: Internal Medicine Gastroenterology
DX: K50.818 Crohn's disease of both small and large intestine with other complication (principal); Z79.899 Other long term (current) drug therapy
CPT/HCPCS: J1200; J7050; Q5103

== ENCOUNTER 2019-05-22 13:11 | Outpatient (CLI) | payer MEDICARE, OTHER ==
[~2019-05-22] VITALS: Ht 170.2 cm; Wt 104.0 kg
[2019-05-22 13:51] LABS: HEMATOCRIT 41.8 % (42.0-52.0); HEMOGLOBIN 14.8 g/dl (13.5-18.0); MEAN CELL VOLUME 93 fl (80.0-100.0); MEAN CORPUSCULAR HEMOGLOBIN 33 pg (27.0-31.0); MEAN CORPUSCULAR HGB CONC 35 g/dl (33.0-37.0); MEAN PLATELET VOLUME 9.9 fl (7.4-10.4); PLATELET COUNT 173 K/mm3 (130-400); RED BLOOD COUNT 4.49 M/mm3 (4.20-5.60); REDCELL DISTRIBUTION WIDTH-CV 15.4 % (11.5-14.5)
[2019-05-22 14:02] LABS: ALBUMIN 3.4 gm/dL (3.5-5.0); BILIRUBIN UNCONJUGATED 0.7 mg/dL (0.0-1.1); BILIRUBIN,DIRECT 0.2 mg/dL (0.0-0.4); TOTAL PROTEIN 6.3 gm/dL (6.4-8.2)
[2019-05-22] MEDS ORDERED: ZOFRAN 4MG T4 MG/TAB PO (14:37)
[2019-05-22] MEDS ORDERED: GLUCOPHAGE500 MG/TAB PO (14:40)
[2019-05-22 15:00] VITALS: BP 127/55; PULSE 57; TEMP 98.7
[2019-05-22 15:30] VITALS: BP 116/63; PULSE 54; TEMP 97.7
[2019-05-22 16:00] VITALS: BP 120/56; PULSE 55; TEMP 98
[2019-05-22 16:30] VITALS: BP 122/55; PULSE 57; TEMP 97.8
[2019-05-22 17:05] VITALS: BP 121/60; PULSE 54; TEMP 97.2
== END 2019-05-22 17:17 | disposition home or self-care (01) ==
LOC: EUO 13:11
PROVIDERS: Internal Medicine Gastroenterology
DX: K50.818 Crohn's disease of both small and large intestine with other complication (principal); Z79.899 Other long term (current) drug therapy
CPT/HCPCS: J1200; J7050; Q5103

== ENCOUNTER → 2019-07-17 | Outpatient (CLI) | payer MEDICARE, OTHER ==
[~2019-07-17] VITALS: Ht 170.2 cm; Wt 108.6 kg
[~2019-07-17] MED LIST changes: +GLUCOPHAGE500 MG/TAB PO; +ZOFRAN 4MG T4 MG/TAB PO
[2019-07-17 13:59] LABS: HEMATOCRIT 41.5 % (42.0-52.0); HEMOGLOBIN 14.4 g/dl (13.5-18.0); MEAN CELL VOLUME 96 fl (80.0-100.0); MEAN CORPUSCULAR HEMOGLOBIN 33 pg (27.0-31.0); MEAN CORPUSCULAR HGB CONC 35 g/dl (33.0-37.0); MEAN PLATELET VOLUME 9.6 fl (7.4-10.4); PLATELET COUNT 295 K/mm3 (130-400); RED BLOOD COUNT 4.32 M/mm3 (4.20-5.60); REDCELL DISTRIBUTION WIDTH-CV 15.4 % (11.5-14.5)
[2019-07-17 14:26] LABS: ALBUMIN 3.4 gm/dL (3.5-5.0); BILIRUBIN UNCONJUGATED 0.6 mg/dL (0.0-1.1); BILIRUBIN,DIRECT 0.3 mg/dL (0.0-0.4); BILIRUBIN,TOTAL 0.9 mg/dL (0.0-1.0); TOTAL PROTEIN 6.1 gm/dL (6.4-8.2)
[2019-07-17 14:45] VITALS: BP 117/52; PULSE 59; TEMP 99.1
[2019-07-17 15:15] VITALS: BP 113/47; PULSE 49; TEMP 99.1
[2019-07-17 15:45] VITALS: BP 120/46; PULSE 52; TEMP 99.1
[2019-07-17 16:15] VITALS: BP 122/44; PULSE 51; TEMP 99.1
== END ==
LOC: EUO 13:29
PROVIDERS: Internal Medicine Gastroenterology
DX: K50.818 Crohn's disease of both small and large intestine with other complication (principal); Z79.899 Other long term (current) drug therapy
CPT/HCPCS: J1200; J7050; Q5103

== ENCOUNTER 2019-09-19 13:47 | Outpatient (CLI) | payer MEDICARE, OTHER ==
[~2019-09-19] VITALS: Ht 170.2 cm; Wt 100.7 kg
[2019-09-19 14:49] LABS: HEMATOCRIT 42.5 % (42.0-52.0); HEMOGLOBIN 14.7 g/dl (13.5-18.0); MEAN CELL VOLUME 98 fl (80.0-100.0); MEAN CORPUSCULAR HEMOGLOBIN 34 pg (27.0-31.0); MEAN CORPUSCULAR HGB CONC 35 g/dl (33.0-37.0); MEAN PLATELET VOLUME 10.4 fl (7.4-10.4); PLATELET COUNT 222 K/mm3 (130-400); RED BLOOD COUNT 4.33 M/mm3 (4.20-5.60); REDCELL DISTRIBUTION WIDTH-CV 15.3 % (11.5-14.5)
[2019-09-19 15:03] LABS: ALBUMIN 3.6 gm/dL (3.5-5.0); BILIRUBIN UNCONJUGATED 0.8 mg/dL (0.0-1.1); BILIRUBIN,DIRECT 0.1 mg/dL (0.0-0.4); BILIRUBIN,TOTAL 0.9 mg/dL (0.0-1.0); TOTAL PROTEIN 6.3 gm/dL (6.4-8.2)
[2019-09-19 15:25] VITALS: BP 120/44; PULSE 48; TEMP 98
[2019-09-19 15:55] VITALS: BP 118/40; PULSE 48; TEMP 98
[2019-09-19 16:25] VITALS: BP 95/69; PULSE 46; TEMP 98
[2019-09-19 16:55] VITALS: BP 107/40; PULSE 49; TEMP 98
[2019-09-19 17:23] VITALS: BP 108/44; PULSE 47; TEMP 98
== END 2019-09-19 17:24 | disposition home or self-care (01) ==
LOC: EUO 13:47
PROVIDERS: Internal Medicine Gastroenterology
DX: K50.818 Crohn's disease of both small and large intestine with other complication (principal); Z79.899 Other long term (current) drug therapy
CPT/HCPCS: J1200; J7050; Q5103

== ENCOUNTER 2019-11-14 13:50 | Outpatient (CLI) | payer MEDICARE, OTHER ==
[~2019-11-14] VITALS: Ht 170.2 cm; Wt 100.2 kg
[2019-11-14 14:18] LABS: HEMATOCRIT 42.4 % (42.0-52.0); HEMOGLOBIN 14.8 g/dl (13.5-18.0); MEAN CELL VOLUME 97 fl (80.0-100.0); MEAN CORPUSCULAR HEMOGLOBIN 34 pg (27.0-31.0); MEAN CORPUSCULAR HGB CONC 35 g/dl (33.0-37.0); MEAN PLATELET VOLUME 9.9 fl (7.4-10.4); PLATELET COUNT 176 K/mm3 (130-400); RED BLOOD COUNT 4.37 M/mm3 (4.20-5.60); REDCELL DISTRIBUTION WIDTH-CV 15.6 % (11.5-14.5)
[2019-11-14 14:30] LABS: ALBUMIN 3.8 gm/dL (3.5-5.0); BILIRUBIN UNCONJUGATED 0.8 mg/dL (0.0-1.1); BILIRUBIN,DIRECT 0.2 mg/dL (0.0-0.4); TOTAL PROTEIN 6.5 gm/dL (6.4-8.2)
[2019-11-14 15:02] VITALS: BP 127/50; PULSE 51; TEMP 97.9
[2019-11-14 15:37] VITALS: BP 129/59; PULSE 51; TEMP 97.5
[2019-11-14 16:00] VITALS: BP 128/56; PULSE 52; TEMP 97
[2019-11-14 16:30] VITALS: BP 115/66; PULSE 51; TEMP 97.6
--- NOTE | 2019-11-14 17:15 | NUR ---
Report received from Lissette Hodge.
[2019-11-14 17:30] VITALS: BP 115/61; PULSE 103; TEMP 97.8
== END 2019-11-14 17:38 | disposition home or self-care (01) ==
LOC: EUO 13:50
PROVIDERS: Internal Medicine Gastroenterology
DX: K50.818 Crohn's disease of both small and large intestine with other complication (principal); Z79.899 Other long term (current) drug therapy
CPT/HCPCS: J1200; J7050; Q5103

== ENCOUNTER 2020-01-17 12:46 | Outpatient (CLI) | payer MEDICARE, OTHER ==
[~2020-01-17] VITALS: Ht 170.2 cm; Wt 101.1 kg
[2020-01-17 13:23] LABS: HEMATOCRIT 41.9 % (42.0-52.0); HEMOGLOBIN 14.4 g/dl (13.5-18.0); MEAN CELL VOLUME 100 fl (80.0-100.0); MEAN CORPUSCULAR HEMOGLOBIN 34 pg (27.0-31.0); MEAN CORPUSCULAR HGB CONC 34 g/dl (33.0-37.0); MEAN PLATELET VOLUME 10.2 fl (7.4-10.4); PLATELET COUNT 165 K/mm3 (130-400); RED BLOOD COUNT 4.18 M/mm3 (4.20-5.60); REDCELL DISTRIBUTION WIDTH-CV 15.9 % (11.5-14.5)
[2020-01-17 13:46] LABS: ALBUMIN 3.4 gm/dL (3.5-5.0); BILIRUBIN UNCONJUGATED 0.9 mg/dL (0.0-1.1); BILIRUBIN,DIRECT 0.2 mg/dL (0.0-0.4); TOTAL PROTEIN 6.1 gm/dL (6.4-8.2)
[2020-01-17 14:25] VITALS: BP 132/57; PULSE 51; TEMP 98.7
[2020-01-17 14:55] VITALS: BP 131/50; PULSE 49
[2020-01-17 15:25] VITALS: BP 124/50; PULSE 48
[2020-01-17 15:55] VITALS: BP 112/53; PULSE 48
[2020-01-17 16:00] VITALS: BP 120/50; PULSE 49; TEMP 98.1
[2020-01-17 16:30] VITALS: BP 124/54; PULSE 49
== END 2020-01-17 18:02 | disposition home or self-care (01) ==
LOC: EUO 12:46
PROVIDERS: Internal Medicine Gastroenterology
DX: K50.818 Crohn's disease of both small and large intestine with other complication (principal); Z79.899 Other long term (current) drug therapy
CPT/HCPCS: J1200; J7050; Q5103

== ENCOUNTER 2020-03-13 12:44 | Outpatient (CLI) | payer MEDICARE, OTHER ==
[~2020-03-13] VITALS: Ht 170.2 cm; Wt 100.2 kg
[2020-03-13 13:08] LABS: HEMATOCRIT 42.1 % (42.0-52.0); HEMOGLOBIN 14.7 g/dl (13.5-18.0); MEAN CELL VOLUME 99 fl (80.0-100.0); MEAN CORPUSCULAR HEMOGLOBIN 35 pg (27.0-31.0); MEAN CORPUSCULAR HGB CONC 35 g/dl (33.0-37.0); MEAN PLATELET VOLUME 9.8 fl (7.4-10.4); PLATELET COUNT 165 K/mm3 (130-400); RED BLOOD COUNT 4.26 M/mm3 (4.20-5.60); REDCELL DISTRIBUTION WIDTH-CV 15.7 % (11.5-14.5)
[2020-03-13 13:18] LABS: ALBUMIN 3.5 gm/dL (3.5-5.0); BILIRUBIN UNCONJUGATED 1.1 mg/dL (0.0-1.1); BILIRUBIN,DIRECT 0.2 mg/dL (0.0-0.4); BILIRUBIN,TOTAL 1.3 mg/dL (0.0-1.0); TOTAL PROTEIN 6.5 gm/dL (6.4-8.2)
[2020-03-13 13:53] VITALS: BP 145/73; PULSE 54; TEMP 97.3
[2020-03-13 14:23] VITALS: BP 120/69; PULSE 49; TEMP 97.3
[2020-03-13 14:55] VITALS: BP 125/70; PULSE 50; TEMP 97.3
[2020-03-13 15:23] VITALS: BP 120/72; PULSE 49; TEMP 97.3
[2020-03-13 15:55] VITALS: BP 120/69; PULSE 46; TEMP 97.4
== END 2020-03-13 15:55 | disposition home or self-care (01) ==
LOC: EUO 12:44
PROVIDERS: Internal Medicine Gastroenterology
DX: K50.818 Crohn's disease of both small and large intestine with other complication (principal); Z79.899 Other long term (current) drug therapy
CPT/HCPCS: J1200; J7050; Q5103

== ENCOUNTER 2020-05-08 14:31 | Outpatient (CLI) | payer MEDICARE, OTHER ==
[~2020-05-08] VITALS: Ht 170.2 cm; Wt 100.0 kg
[2020-05-08 15:05] LABS: HEMATOCRIT 39.4 % (42.0-52.0); HEMOGLOBIN 13.5 g/dl (13.5-18.0); MEAN CELL VOLUME 102 fl (80.0-100.0); MEAN CORPUSCULAR HEMOGLOBIN 35 pg (27.0-31.0); MEAN CORPUSCULAR HGB CONC 34 g/dl (33.0-37.0); MEAN PLATELET VOLUME 10.7 fl (7.4-10.4); PLATELET COUNT 136 K/mm3 (130-400); RED BLOOD COUNT 3.88 M/mm3 (4.20-5.60); REDCELL DISTRIBUTION WIDTH-CV 16.3 % (11.5-14.5)
[2020-05-08 15:12] LABS: ALBUMIN 3.3 gm/dL (3.5-5.0); BILIRUBIN,TOTAL 1.4 mg/dL (0.0-1.0)
[2020-05-08 15:26] LABS: BILIRUBIN UNCONJUGATED 1.1 mg/dL (0.0-1.1); BILIRUBIN,DIRECT 0.2 mg/dL (0.0-0.4)
[2020-05-08 15:45] VITALS: BP 110/46; PULSE 52; TEMP 98
[2020-05-08 16:15] VITALS: BP 116/42; PULSE 48; TEMP 98
[2020-05-08 16:45] VITALS: BP 121/41; PULSE 46; TEMP 97.8
[2020-05-08 17:15] VITALS: BP 121/48; PULSE 50
[2020-05-08 18:00] VITALS: BP 113/74; PULSE 45
== END 2020-05-08 18:05 | disposition home or self-care (01) ==
LOC: EUO 14:31
PROVIDERS: Internal Medicine Gastroenterology
DX: K50.818 Crohn's disease of both small and large intestine with other complication (principal); Z79.899 Other long term (current) drug therapy
CPT/HCPCS: J1200; J7050; Q5103

== ENCOUNTER → 2020-05-20 | Outpatient (CLI) | payer MEDICARE, OTHER | LOC: COL.RAD 10:32 | DX: Z01.812 Encounter for preprocedural laboratory examination (principal); I71.4 Abdominal aortic aneurysm, without rupture | CPT/HCPCS: Q9967 ==

== ENCOUNTER 2020-07-03 14:59 | Outpatient (CLI) | payer MEDICARE, OTHER ==
[~2020-07-03] VITALS: Ht 170.2 cm; Wt 99.3 kg
[2020-07-03] VITALS (7 sets, daily range): BP systolic 110–119; BP diastolic 61–70; PULSE 47–52; TEMP 98.4
[2020-07-03 15:31] LABS: HEMATOCRIT 41.2 % (42.0-52.0); HEMOGLOBIN 14.1 g/dl (13.5-18.0); MEAN CELL VOLUME 101 fl (80.0-100.0); MEAN CORPUSCULAR HEMOGLOBIN 35 pg (27.0-31.0); MEAN CORPUSCULAR HGB CONC 34 g/dl (33.0-37.0); MEAN PLATELET VOLUME 10.5 fl (7.4-10.4); PLATELET COUNT 141 K/mm3 (130-400); RED BLOOD COUNT 4.08 M/mm3 (4.20-5.60); REDCELL DISTRIBUTION WIDTH-CV 15.9 % (11.5-14.5)
[2020-07-03 15:52] LABS: ALBUMIN 3.4 gm/dL (3.5-5.0); BILIRUBIN UNCONJUGATED 1.4 mg/dL (0.0-1.1); BILIRUBIN,DIRECT 0.4 mg/dL (0.0-0.4); BILIRUBIN,TOTAL 1.8 mg/dL (0.0-1.0); TOTAL PROTEIN 6.2 gm/dL (6.4-8.2)
== END 2020-07-03 18:18 | disposition home or self-care (01) ==
LOC: EUO 14:59
PROVIDERS: Internal Medicine Gastroenterology
DX: K50.818 Crohn's disease of both small and large intestine with other complication (principal); Z79.899 Other long term (current) drug therapy
CPT/HCPCS: J1200; J7050; Q5103

== ENCOUNTER 2020-08-28 13:45 | Outpatient (CLI) | payer MEDICARE, OTHER ==
[~2020-08-28] VITALS: Ht 170.2 cm; Wt 96.7 kg
[2020-08-28 14:17] LABS: HEMATOCRIT 37.6 % (42.0-52.0); HEMOGLOBIN 13.2 g/dl (13.5-18.0); MEAN CELL VOLUME 100 fl (80.0-100.0); MEAN CORPUSCULAR HEMOGLOBIN 35 pg (27.0-31.0); MEAN CORPUSCULAR HGB CONC 35 g/dl (33.0-37.0); MEAN PLATELET VOLUME 10.3 fl (7.4-10.4); PLATELET COUNT 131 K/mm3 (130-400); RED BLOOD COUNT 3.75 M/mm3 (4.20-5.60); REDCELL DISTRIBUTION WIDTH-CV 16.2 % (11.5-14.5)
[2020-08-28 14:27] LABS: ALBUMIN 3.2 gm/dL (3.5-5.0); BILIRUBIN,TOTAL 1.7 mg/dL (0.0-1.0); TOTAL PROTEIN 5.5 gm/dL (6.4-8.2)
[2020-08-28 14:57] LABS: BILIRUBIN UNCONJUGATED 1.4 mg/dL (0.0-1.1); BILIRUBIN,DIRECT 0.3 mg/dL (0.0-0.4)
[2020-08-28 15:08] VITALS: BP 117/69; PULSE 52; TEMP 98.6
[2020-08-28 15:20] VITALS: BP 123/71; PULSE 48
[2020-08-28 15:50] VITALS: BP 120/68; PULSE 49
[2020-08-28 16:55] VITALS: BP 119/53; PULSE 46
[2020-08-28 17:25] VITALS: BP 114/55; PULSE 47; TEMP 98.2
== END 2020-08-28 18:24 | disposition home or self-care (01) ==
LOC: EUO 13:45
PROVIDERS: Internal Medicine Gastroenterology
DX: K50.818 Crohn's disease of both small and large intestine with other complication (principal); Z79.899 Other long term (current) drug therapy
CPT/HCPCS: J1200; J7050; Q5103

== ENCOUNTER → 2020-10-05 | Outpatient (CLI) | payer MEDICARE, OTHER | LOC: COL.RAD 10:22 | DX: I71.3 Abdominal aortic aneurysm, ruptured (principal); R18.8 Other ascites; K74.60 Unspecified cirrhosis of liver; Z95.828 Presence of other vascular implants and grafts | CPT/HCPCS: Q9967 ==

== ENCOUNTER 2020-10-23 13:47 | Outpatient (CLI) | payer MEDICARE, OTHER ==
[2020-10-23 14:52] LABS: HEMOGLOBIN 12.4 g/dl (13.5-18.0); MEAN CELL VOLUME 101 fl (80.0-100.0); MEAN CORPUSCULAR HEMOGLOBIN 35 pg (27.0-31.0); MEAN CORPUSCULAR HGB CONC 35 g/dl (33.0-37.0); MEAN PLATELET VOLUME 10.4 fl (7.4-10.4); PLATELET COUNT 123 K/mm3 (130-400); REDCELL DISTRIBUTION WIDTH-CV 15.9 % (11.5-14.5)
[2020-10-23 14:53] LABS: HEMATOCRIT 35.4 % (42.0-52.0)
[2020-10-23 15:22] LABS: ALBUMIN 2.9 gm/dL (3.5-5.0); TOTAL PROTEIN 5.2 gm/dL (6.4-8.2)
[2020-10-23 15:32] VITALS: BP 150/75; PULSE 51; TEMP 98.1
[2020-10-23 16:04] VITALS: BP 147/76; PULSE 47; TEMP 98.1
[2020-10-23 16:34] VITALS: BP 160/64; PULSE 46
[2020-10-23 17:15] VITALS: BP 140/59; PULSE 50
[2020-10-23 17:34] VITALS: BP 140/59; PULSE 48
[2020-10-23 18:04] VITALS: BP 178/65; PULSE 48
[2020-10-23 18:05] LABS: BILIRUBIN UNCONJUGATED 1.5 mg/dL (0.0-1.1); BILIRUBIN,DIRECT 0.3 mg/dL (0.0-0.4); BILIRUBIN,TOTAL 1.8 mg/dL (0.0-1.0)
== END 2020-10-23 18:20 | disposition home or self-care (01) ==
LOC: EUO 13:47
PROVIDERS: Internal Medicine Gastroenterology
DX: K50.818 Crohn's disease of both small and large intestine with other complication (principal); Z79.899 Other long term (current) drug therapy
CPT/HCPCS: J1200; J7050; Q5103

== ENCOUNTER 2020-12-18 13:54 | Outpatient (CLI) | payer MEDICARE, OTHER ==
[~2020-12-18] VITALS: Ht 170.2 cm; Wt 94.4 kg
[2020-12-18 14:52] LABS: HEMOGLOBIN 12.5 g/dl (13.5-18.0); MEAN CELL VOLUME 104 fl (80.0-100.0); MEAN CORPUSCULAR HEMOGLOBIN 37 pg (27.0-31.0); MEAN CORPUSCULAR HGB CONC 35 g/dl (33.0-37.0); MEAN PLATELET VOLUME 10.9 fl (7.4-10.4); PLATELET COUNT 137 K/mm3 (130-400); REDCELL DISTRIBUTION WIDTH-CV 17.2 % (11.5-14.5)
[2020-12-18 15:09] LABS: ALBUMIN 3.2 gm/dL (3.5-5.0); BILIRUBIN,TOTAL 2.6 mg/dL (0.0-1.0); TOTAL PROTEIN 5.8 gm/dL (6.4-8.2)
[2020-12-18 15:19] LABS: BILIRUBIN UNCONJUGATED 1.5 mg/dL (0.0-1.1)
[2020-12-18 15:19] LABS: HEMATOCRIT 35.4 % (42.0-52.0)
[2020-12-18 16:35] VITALS: BP 150/70; PULSE 48; TEMP 98.6
[2020-12-18 17:05] VITALS: BP 136/65; PULSE 48; TEMP 98.6
[2020-12-18 17:35] VITALS: BP 145/81; PULSE 45; TEMP 98.6
[2020-12-18 18:05] VITALS: BP 145/59; PULSE 47; TEMP 98.6
[2020-12-18 18:40] VITALS: BP 146/64; PULSE 45; TEMP 98.6
== END 2020-12-18 18:40 | disposition home or self-care (01) ==
LOC: EUO 13:54
PROVIDERS: Internal Medicine Gastroenterology
DX: K50.818 Crohn's disease of both small and large intestine with other complication (principal); Z79.899 Other long term (current) drug therapy
CPT/HCPCS: J1200; J7050; Q5103

== ENCOUNTER 2021-02-12 13:41 | Outpatient (CLI) | payer MEDICARE, OTHER ==
[~2021-02-12] VITALS: Ht 170.2 cm; Wt 96.3 kg
[2021-02-12 14:42] LABS: HEMOGLOBIN 11.8 g/dl (13.5-18.0); MEAN CELL VOLUME 104 fl (80.0-100.0); MEAN CORPUSCULAR HEMOGLOBIN 36 pg (27.0-31.0); MEAN CORPUSCULAR HGB CONC 35 g/dl (33.0-37.0); PLATELET COUNT 125 K/mm3 (130-400); RED BLOOD COUNT 3.27 M/mm3 (4.20-5.60); REDCELL DISTRIBUTION WIDTH-CV 16.1 % (11.5-14.5)
[2021-02-12 14:43] LABS: HEMATOCRIT 34.1 % (42.0-52.0)
[2021-02-12 14:50] LABS: ALBUMIN 2.6 gm/dL (3.5-5.0); BILIRUBIN UNCONJUGATED 2.6 mg/dL (0.0-1.1); BILIRUBIN,DIRECT 0.5 mg/dL (0.0-0.4)
[2021-02-12 15:44] VITALS: BP 159/59; PULSE 52; TEMP 98.2
[2021-02-12 16:15] VITALS: BP 151/52; PULSE 49; TEMP 98.2
[2021-02-12 16:45] VITALS: BP 156/52; PULSE 56; TEMP 98.2
[2021-02-12 17:15] VITALS: BP 166/54; PULSE 52; TEMP 98.2
[2021-02-12 17:28] VITALS: BP 167/53; PULSE 54; TEMP 98.2
== END 2021-02-12 17:29 | disposition home or self-care (01) ==
LOC: EUO 13:41
PROVIDERS: Internal Medicine Gastroenterology
DX: K50.818 Crohn's disease of both small and large intestine with other complication (principal)
CPT/HCPCS: J1200; J7050; Q5103

== ENCOUNTER 2021-04-09 13:43 | Outpatient (CLI) | payer MEDICARE, OTHER ==
[~2021-04-09] VITALS: Ht 170.2 cm; Wt 89.5 kg
[2021-04-09 14:13] LABS: HEMOGLOBIN 11.9 g/dl (13.5-18.0); MEAN CELL VOLUME 105 fl (80.0-100.0); MEAN CORPUSCULAR HEMOGLOBIN 36 pg (27.0-31.0); MEAN CORPUSCULAR HGB CONC 34 g/dl (33.0-37.0); MEAN PLATELET VOLUME 10.8 fl (7.4-10.4); PLATELET COUNT 107 K/mm3 (130-400); RED BLOOD COUNT 3.29 M/mm3 (4.20-5.60); REDCELL DISTRIBUTION WIDTH-CV 16.1 % (11.5-14.5)
[2021-04-09 14:28] VITALS: BP 130/76; PULSE 46; TEMP 98.6
[2021-04-09 14:28] LABS: ALBUMIN 2.9 gm/dL (3.5-5.0); BILIRUBIN UNCONJUGATED 2.8 mg/dL (0.0-1.1); BILIRUBIN,DIRECT 0.5 mg/dL (0.0-0.4); BILIRUBIN,TOTAL 3.3 mg/dL (0.0-1.0); TOTAL PROTEIN 5.2 gm/dL (6.4-8.2)
[2021-04-09 14:36] LABS: HEMATOCRIT 34.6 % (42.0-52.0)
[2021-04-09 15:50] VITALS: BP 137/74; PULSE 46
[2021-04-09 16:03] LABS: IRON,SERUM 85 ug/dL (35-150)
[2021-04-09 16:12] LABS: TOTAL IRON BINDING CAPACITY 198 ug/dL (261-462)
[2021-04-09 16:20] VITALS: BP 143/74; PULSE 44
[2021-04-09 16:50] VITALS: BP 146/72; PULSE 46
[2021-04-09 17:20] VITALS: BP 139/73; PULSE 47
[2021-04-09 17:50] VITALS: BP 137/73; PULSE 47
[2021-04-09 23:31] LABS: FOLATE (FOLIC ACID) 3.7 ng/mL (2.0-20.0)
== END 2021-04-12 12:44 ==
LOC: EUO 13:43
PROVIDERS: Internal Medicine Gastroenterology
DX: R71.8 Other abnormality of red blood cells (principal)
CPT/HCPCS: J1200; J7050; Q5103

== ENCOUNTER → 2021-05-25 | Outpatient (CLI) | payer MEDICARE, OTHER ==
[~2021-05-25] MED LIST changes: +ALDACTONE 100M100 MG PO; +LASIX 20MG TABL20 MG PO
== END ==
LOC: COL.RAD 10:13
DX: K74.60 Unspecified cirrhosis of liver (principal); J90 Pleural effusion, not elsewhere classified
CPT/HCPCS: A9585

== ENCOUNTER 2021-06-04 13:55 | Outpatient (CLI) | payer MEDICARE, OTHER ==
[~2021-06-04] VITALS: Ht 170.2 cm; Wt 88.3 kg
[~2021-06-04 13:55] MED LIST changes: -ALDACTONE 100M100 MG PO; -LASIX 20MG TABL20 MG PO
[2021-06-04 15:23] LABS: HEMOGLOBIN 12.1 g/dl (13.5-18.0); MEAN CELL VOLUME 110 fl (80.0-100.0); MEAN CORPUSCULAR HEMOGLOBIN 37 pg (27.0-31.0); MEAN CORPUSCULAR HGB CONC 34 g/dl (33.0-37.0); PLATELET COUNT 111 K/mm3 (130-400); RED BLOOD COUNT 3.26 M/mm3 (4.20-5.60); REDCELL DISTRIBUTION WIDTH-CV 16.5 % (11.5-14.5)
[2021-06-04 15:34] LABS: ALBUMIN 2.8 gm/dL (3.5-5.0); TOTAL PROTEIN 5.5 gm/dL (6.4-8.2)
[2021-06-04 15:42] VITALS: BP 144/71; PULSE 48; TEMP 98.6
[2021-06-04 15:45] LABS: BILIRUBIN,DIRECT 0.6 mg/dL (0.0-0.4); BILIRUBIN,TOTAL 2.6 mg/dL (0.0-1.0)
[2021-06-04 17:05] VITALS: BP 140/58; PULSE 46
[2021-06-04 17:35] VITALS: BP 143/80; PULSE 46
[2021-06-04 18:05] VITALS: BP 136/62; PULSE 46
[2021-06-04 18:35] VITALS: BP 147/75; PULSE 48
== END 2021-06-15 18:42 ==
LOC: EUO 13:55
PROVIDERS: Internal Medicine Gastroenterology
DX: K50.80 Crohn's disease of both small and large intestine without complications (principal); Z79.899 Other long term (current) drug therapy
CPT/HCPCS: J1200; J7050; Q5103

== ENCOUNTER 2021-06-18 11:50 | Outpatient (CLI) | payer MEDICARE, OTHER ==
[~2021-06-18] VITALS: Ht 170.2 cm; Wt 88.8 kg
[2021-06-18 12:31] VITALS: BP 155/59; PULSE 55
[2021-06-18 14:10] VITALS: BP 143/63; PULSE 54
--- NOTE | 2021-06-18 14:20 | NUR ---
No need for albumin administration due to insufficient volume of fluid removed during para. Pt is steady on feet, no complaints. Dressing over para site is clean, dry and intact. He is assisted out by wheelchair to waiting room, where he plans to wait for ride home.
[2021-06-18 14:39] LABS: PERITONEAL -POLYMORPHONUCLEAR 3.6 % (0-25); PERITONEAL FLUID RBC 1000 /mm3 (0-0)
== END 2021-06-18 14:20 | disposition home or self-care (01) ==
LOC: COL.RAD 11:50
PROVIDERS: Internal Medicine Gastroenterology
DX: K74.60 Unspecified cirrhosis of liver (principal); R18.8 Other ascites
CPT/HCPCS: 19804

== ENCOUNTER 2021-07-30 12:44 | Outpatient (CLI) | payer MEDICARE, OTHER ==
[~2021-07-30] VITALS: Ht 170.2 cm; Wt 73.7 kg
[2021-07-30 13:31] LABS: HEMOGLOBIN 12.3 g/dl (13.5-18.0); MEAN CELL VOLUME 102 fl (80.0-100.0); MEAN CORPUSCULAR HEMOGLOBIN 36 pg (27.0-31.0); MEAN CORPUSCULAR HGB CONC 35 g/dl (33.0-37.0); PLATELET COUNT 184 K/mm3 (130-400); RED BLOOD COUNT 3.44 M/mm3 (4.20-5.60); REDCELL DISTRIBUTION WIDTH-CV 17.2 % (11.5-14.5)
[2021-07-30 13:41] LABS: HEMATOCRIT 34.9 % (42.0-52.0)
[2021-07-30 13:44] LABS: ALBUMIN 3.4 gm/dL (3.5-5.0); BILIRUBIN UNCONJUGATED 2.3 mg/dL (0.0-1.1); BILIRUBIN,DIRECT 0.9 mg/dL (0.0-0.4); BILIRUBIN,TOTAL 3.2 mg/dL (0.0-1.0); TOTAL PROTEIN 6.4 gm/dL (6.4-8.2)
[2021-07-30 14:05] VITALS: BP 102/43; PULSE 54; TEMP 97.9
[2021-07-30 15:00] VITALS: BP 105/40; PULSE 48
[2021-07-30] MEDS ORDERED: LASIX 20MG TABL20 MG PO (15:00)
[2021-07-30] MEDS ORDERED: ALDACTONE 100M100 MG PO (15:01)
[2021-07-30 15:30] VITALS: BP 113/49; PULSE 51; TEMP 98.1
[2021-07-30 16:00] VITALS: BP 105/40; PULSE 48
[2021-07-30 16:30] VITALS: BP 112/48; PULSE 51
== END 2021-07-30 16:33 | disposition home or self-care (01) ==
LOC: EUO 12:44
PROVIDERS: Internal Medicine Gastroenterology
DX: K50.80 Crohn's disease of both small and large intestine without complications (principal); Z79.899 Other long term (current) drug therapy
CPT/HCPCS: J1200; J7050; Q5103

== ENCOUNTER 2021-09-28 13:44 | Outpatient (CLI) | payer MEDICARE, OTHER ==
[~2021-09-28] VITALS: Ht 170.2 cm; Wt 73.0 kg
[~2021-09-28 13:44] MED LIST changes: +ALDACTONE 100M100 MG PO; +LASIX 20MG TABL20 MG PO
[2021-09-28 14:14] LABS: HEMOGLOBIN 11.7 g/dl (13.5-18.0); MEAN CELL VOLUME 108 fl (80.0-100.0); MEAN CORPUSCULAR HEMOGLOBIN 37 pg (27.0-31.0); MEAN CORPUSCULAR HGB CONC 34 g/dl (33.0-37.0); MEAN PLATELET VOLUME 10.7 fl (7.4-10.4); PLATELET COUNT 131 K/mm3 (130-400); RED BLOOD COUNT 3.18 M/mm3 (4.20-5.60); REDCELL DISTRIBUTION WIDTH-CV 17.2 % (11.5-14.5)
[2021-09-28 14:16] LABS: HEMATOCRIT 34.3 % (42.0-52.0)
[2021-09-28 14:31] LABS: ALBUMIN 2.7 gm/dL (3.4-4.8); TOTAL PROTEIN 5.5 gm/dL (6.2-8.1)
[2021-09-28 15:15] VITALS: BP 106/46; PULSE 50; TEMP 98
[2021-09-28 15:45] VITALS: BP 109/66; PULSE 44
[2021-09-28 16:15] VITALS: BP 110/66; PULSE 45; TEMP 98.1
[2021-09-28 16:45] VITALS: BP 97/49; PULSE 44
[2021-09-28 17:15] VITALS: BP 106/56; PULSE 45; TEMP 98.1
== END 2021-09-28 17:22 | disposition home or self-care (01) ==
LOC: EUO 13:44
PROVIDERS: Internal Medicine Gastroenterology
DX: K50.80 Crohn's disease of both small and large intestine without complications (principal); Z79.899 Other long term (current) drug therapy
CPT/HCPCS: J1200; J7050; Q5103

== ENCOUNTER 2021-11-23 13:25 | Outpatient (CLI) | payer MEDICARE, OTHER ==
[2021-11-23] VITALS (7 sets, daily range): BP systolic 101–111; BP diastolic 48–66; PULSE 47–57; TEMP 97–98
[~2021-11-23] VITALS: Ht 170.2 cm; Wt 72.0 kg
[2021-11-23 13:51] LABS: HEMOGLOBIN 12.2 g/dl (13.5-18.0); MEAN CELL VOLUME 103 fl (80.0-100.0); MEAN CORPUSCULAR HEMOGLOBIN 36 pg (27-31); MEAN CORPUSCULAR HGB CONC 35 g/dl (33.0-37.0); MEAN PLATELET VOLUME 11.1 fl (7.4-10.4); PLATELET COUNT 129 K/mm3 (130-400); RED BLOOD COUNT 3.36 M/mm3 (4.20-5.60)
[2021-11-23 13:53] LABS: HEMATOCRIT 34.7 % (42.0-52.0)
[2021-11-23 14:17] LABS: BILIRUBIN,TOTAL 2.4 mg/dL (0.2-1.2); TOTAL PROTEIN 5.7 gm/dL (6.2-8.1)
== END 2021-11-23 16:55 | disposition home or self-care (01) ==
LOC: EUO 13:25
PROVIDERS: Internal Medicine Gastroenterology
DX: K50.80 Crohn's disease of both small and large intestine without complications (principal); Z79.899 Other long term (current) drug therapy
CPT/HCPCS: J7050; Q5103

== ENCOUNTER → 2021-12-10 | Outpatient (CLI) | payer MEDICARE, OTHER | LOC: COL.RAD 06:53 | DX: K74.60 Unspecified cirrhosis of liver (principal) | CPT/HCPCS: A9575 ==

== ENCOUNTER 2022-01-18 13:53 | Outpatient (CLI) | payer MEDICARE, OTHER ==
[~2022-01-18] VITALS: Ht 170.2 cm; Wt 81.7 kg
[2022-01-18 14:30] LABS: BASO # 0.1 K/mm3 (0.0-0.2); BASO % 1.3 % (0.0-2.0); EOS # 0.7 K/mm3 (0.0-0.7); EOS % 9.5 % (0.0-4.0); GRAN # 3.7 K/mm3 (1.4-6.5); GRAN % 53.3 % (42.2-75.2); HEMATOCRIT 34.2 % (42.0-52.0); HEMOGLOBIN 11.5 g/dl (13.5-18.0); LYMPH # 1.4 K/mm3 (1.2-3.4); LYMPH % 20.2 % (20.0-51.0); MEAN CELL VOLUME 105 fl (80.0-100.0); MEAN CORPUSCULAR HEMOGLOBIN 35 pg (27-31); MEAN CORPUSCULAR HGB CONC 34 g/dl (33.0-37.0); MEAN PLATELET VOLUME 10.6 fl (7.4-10.4); MONO # 1.1 K/mm3 (0.1-0.6); MONO % 15.4 % (1.7-9.3); PLATELET COUNT 121 K/mm3 (130-400); RED BLOOD COUNT 3.26 M/mm3 (4.20-5.60)
[2022-01-18 14:48] LABS: ALBUMIN 2.8 gm/dL (3.4-4.8); TOTAL PROTEIN 4.7 gm/dL (6.2-8.1)
[2022-01-18 15:50] VITALS: BP 103/53; PULSE 78; TEMP 97.5
[2022-01-18 17:18] VITALS: BP 145/60; PULSE 48
[2022-01-18 17:30] VITALS: BP 142/59; PULSE 45
[2022-01-18 17:45] VITALS: BP 147/59; PULSE 47
[2022-01-18 18:05] VITALS: BP 147/64; PULSE 49
== END 2022-01-18 18:05 ==
LOC: EUO 13:53
PROVIDERS: Internal Medicine Gastroenterology
DX: K50.80 Crohn's disease of both small and large intestine without complications (principal); Z79.899 Other long term (current) drug therapy
CPT/HCPCS: J1200; J7050; Q5103

== ENCOUNTER → 2022-02-23 | Outpatient (CLI) | payer MEDICARE, OTHER ==
[~2022-02-23] VITALS: Ht 170.2 cm; Wt 85.5 kg
[~2022-02-23] MED LIST changes: -CALCITRATE 3151 TAB PO; +CALCIUM 600 PLU1 TAB PO; +IRON TABLETS325 MG PO; +POTASSIUM GLUC595 M1 PO; +TOPROL XL 50MG50 MG PO; +VITAMIN C500 MG PO
[2022-02-23 12:14] VITALS: BP 156/71; PULSE 55; TEMP 97.8
[2022-02-23 13:10] VITALS: BP 153/81; PULSE 58
[2022-02-23 13:34] LABS: PERITONEAL -POLYMORPHONUCLEAR 21.5 % (0-25)
== END ==
LOC: COL.RAD 11:37
PROVIDERS: Internal Medicine Gastroenterology
DX: K74.60 Unspecified cirrhosis of liver (principal)
CPT/HCPCS: 19804

== ENCOUNTER 2022-03-15 13:52 | Outpatient (CLI) | payer MEDICARE, OTHER ==
[~2022-03-15] VITALS: Ht 170.2 cm; Wt 81.8 kg
[2022-03-15] VITALS (8 sets, daily range): BP systolic 138–150; BP diastolic 55–64; PULSE 45–48; TEMP 97.9
[~2022-03-15 13:52] MED LIST changes: -TOPROL XL 50MG50 MG PO
[2022-03-15 14:42] LABS: BASO # 0.1 K/mm3 (0.0-0.2); BASO % 1.3 % (0.0-2.0); EOS # 0.4 K/mm3 (0.0-0.7); EOS % 5.6 % (0.0-4.0); GRAN # 4.3 K/mm3 (1.4-6.5); GRAN % 63.2 % (42.2-75.2); HEMATOCRIT 38.2 % (42.0-52.0); HEMOGLOBIN 12.7 g/dl (13.5-18.0); LYMPH # 1.3 K/mm3 (1.2-3.4); LYMPH % 19.8 % (20.0-51.0); MEAN CELL VOLUME 103 fl (80.0-100.0); MEAN CORPUSCULAR HEMOGLOBIN 34 pg (27-31); MEAN CORPUSCULAR HGB CONC 33 g/dl (33.0-37.0); MEAN PLATELET VOLUME 10.5 fl (7.4-10.4); MONO # 0.7 K/mm3 (0.1-0.6); PLATELET COUNT 154 K/mm3 (130-400); RED BLOOD COUNT 3.71 M/mm3 (4.20-5.60); REDCELL DISTRIBUTION WIDTH-CV 16.9 % (11.5-14.5)
[2022-03-15 15:09] LABS: ALBUMIN 2.7 gm/dL (3.4-4.8); BILIRUBIN,DIRECT 1.4 mg/dL (0.0-0.5); TOTAL PROTEIN 4.9 gm/dL (6.2-8.1)
[2022-03-15] MEDS ORDERED: K-DUR20 MEQ PO (15:53)
[2022-03-15] MEDS ORDERED: ZOFRAN 4MG T4 MG/TAB PO (15:54)
== END 2022-03-15 18:50 | disposition home or self-care (01) ==
LOC: EUO 13:52
PROVIDERS: Internal Medicine Gastroenterology
DX: K50.80 Crohn's disease of both small and large intestine without complications (principal); Z79.899 Other long term (current) drug therapy
CPT/HCPCS: J7050; Q5103